=== PATIENT | male | born 1985 | race Caucasian/White ===

== ENCOUNTER 2024-07-07 11:26 | Outpatient (CLI) | payer OTHER ==
[~2024-07-07 11:26] MED LIST: ACYC-1 PO; BUPR150T8 PO; BUSP15TA7 PO; FLUO20CA39 PO; FLUT16SP26 BOTHNARES; LORA10TA7 PO; MONT-40 PO; OMEP20CA16 PO; VITAMIN D3
== END 2024-07-07 23:59 | disposition home or self-care (01) ==
LOC: RAD 11:26
PROVIDERS: ATTEND Surgery
DX: K44.9 Diaphragmatic hernia without obstruction or gangrene (principal); K21.9 Gastro-esophageal reflux disease without esophagitis
CPT/HCPCS: 74220

== ENCOUNTER 2024-07-12 05:25 | Day surgery (SDC) | payer OTHER ==
[2024-07-06 15:40] LABS: BASOPHILS # (AUTO) 0.1 X10'3 (0-0.2); BASOPHILS % (AUTO) 1.5 % (0-1); EOSINOPHILS # (AUTO) 0.4 X10'3 (0-0.9); EOSINOPHILS % (AUTO) 4.6 % (0-6); LYMPHOCYTES # (AUTO) 2.4 X10'3 (1.1-4.8); LYMPHOCYTES % (AUTO) 27.3 % (21-51); MEAN CORPUSCULAR HEMOGLOBIN 29.5 PG (27.0-31.0); MEAN CORPUSCULAR HGB CONC 34.5 g/dL (33.0-36.5); MEAN CORPUSCULAR VOLUME 85.4 FL (78-98); MEAN PLATELET VOLUME 7.6 FL (7.4-10.4); MONOCYTES # (AUTO) 0.8 X10'3 (0-0.9); MONOCYTES % (AUTO) 8.5 % (2-12); NEUTROPHILS # (AUTO) 5.2 X10'3 (1.8-7.7); NEUTROPHILS % (AUTO) 58.1 % (42-75); PRE OP HEMATOCRIT 42.3 % (42.0-52.0); PRE OP HEMOGLOBIN 14.6 g/dL (14.0-17.9); PRE OP PLATELET COUNT 461 X10'3 (140-440); PRE OP WHITE BLOOD COUNT 8.9 10'3 (4.8-10.8); RED BLOOD COUNT 4.96 X10'6 (4.70-6.10); RED CELL DISTRIBUTION WIDTH 13.5 % (11.5-14.5)
[2024-07-06 15:50] LABS: ALBUMIN 3.7 G/DL (3.4-5.0); ALKALINE PHOSPHATASE 63 IU/L (46-116); BLOOD UREA NITROGEN 17 MG/DL (7-18); BUN/CREATININE RATIO 13.3 (10.0-20.0); CALCIUM 9.2 MG/DL (8.5-10.1); CHLORIDE 104 MMOL/L (99-107); CREATININE 1.28 MG/DL (0.60-1.10); PRE OP ALT 67 U/L (30-65); PRE OP ANION GAP 7 (8-16); PRE OP AST 34 U/L (10-37); PRE OP BILIRUB, TOTAL 0.2 MG/DL (0.0-1.0); PRE OP GLUCOSE 74 MG/DL (70-104); PRE OP SODIUM 139 MMOL/L (135-145); TOTAL CARBON DIOXIDE 28.5 MMOL/L (24-32); TOTAL PROTEIN 7.5 G/DL (6.4-8.2); eGFR 63 ML/MIN
[~2024-07-12] VITALS: Ht 188 cm; Wt 107.4 kg
[2024-07-12] VITALS (12 sets, daily range): BP systolic 147–171; BP diastolic 84–111; PULSE 82–87; RESP 15–18; TEMP 97.6; O2SAT 0–99
[2024-07-12] MEDS: famotidine 20mg tablet PO ONE (06:11)
[2024-07-12] MEDS: ringers solution, lacted 1,000 ML IV SCH (06:12)
[2024-07-12] MEDS: ceFAZolin 2gm in dextrose, iso 50 ML IV ONE (06:13)
[2024-07-12] MEDS ORDERED: BUPIVAcaine 2.5mg/ml inj 50ml vial (contains preservative) ONE (06:37)
[2024-07-12] MEDS ORDERED: LIDOcaine 1% 30ml preserv. free vial ONE (06:37)
[2024-07-12] MEDS ORDERED: fentaNYL/PF 50MCG/1 ML 2ML syringe IV PRN ×2 (07:10)
[2024-07-12] MEDS ORDERED: ondansetron/PF 4mg/2ml inj IV PRN (07:10)
[2024-07-12] MEDS ORDERED: morphine 2 MG/ML inj. syringe IV PRN (07:10)
[2024-07-12] MEDS ORDERED: ringers solution, lacted 1,000 ML IV SCH (07:10)
[2024-07-12] MEDS ORDERED: hydrALAZINE 20mg/ml inj. IV PRN (07:10)
[2024-07-12] MEDS ORDERED: midazolam 1 mg/ML 2ml injection ONE (07:13)
[2024-07-12] MEDS ORDERED: fentaNYL /PF 50mcg/ml 5ml ampule ONE (07:14)
[2024-07-12] MEDS ORDERED: dexamethasone sod phosphate 4mg/ml inj. ONE (07:16)
[2024-07-12] MEDS ORDERED: propofol inj 20 ML IV ONE (07:17)
[2024-07-12] MEDS ORDERED: rocuronium 10mg/ml inj IV ONE ×2 (07:17→09:12)
[2024-07-12] MEDS ORDERED: ondansetron/PF 4mg/2ml inj ONE (07:17)
[2024-07-12] MEDS ORDERED: LIDOcaine 2% (20mg/ml) 5ml vial ONE (07:17)
[2024-07-12] MEDS ORDERED: sevoflurane 250ml liquid IH ONE (07:21)
[2024-07-12] MEDS ORDERED: acetaminophen 1,000mg/100ml IV 100 ML IV ONE (07:31)
[2024-07-12] MEDS ORDERED: labetalol 20mg/4ml (5mg/ml) syringe IV ONE (09:11)
[2024-07-12] MEDS ORDERED: fentaNYL/PF 50MCG/1 ML 2ML syringe ONE (09:12)
[2024-07-12] MEDS ORDERED: sugammadex 200mg/2ml injection IV ONE (09:14)
[2024-07-12] MEDS ORDERED: naloxone 0.4 mg/ml inj IV PRN (10:15)
[2024-07-12] MEDS ORDERED: oxyCODONE/APAP 5-325mg tablet PO PRN (10:15)
[2024-07-12] MEDS: labetalol 20mg/4ml (5mg/ml) syringe IV PRN (10:33)
[2024-07-12] MEDS: oxyCODONE/APAP 5-325mg tablet PO ONE (10:59)
[2024-07-12] MEDS: morphine 4 MG/ML inj SYRINge IV PRN (11:03)
== END 2024-07-12 11:28 | disposition home or self-care (01) ==
LOC: PAS 05:25
PROVIDERS: ATTEND Surgery
DX: K44.9 Diaphragmatic hernia without obstruction or gangrene (principal); K21.9 Gastro-esophageal reflux disease without esophagitis; F32.A Depression, unspecified; G40.909 Epilepsy, unspecified, not intractable, without status epilepticus; G47.30 Sleep apnea, unspecified; Z98.890 Other specified postprocedural states; F41.9 Anxiety disorder, unspecified; Z79.899 Other long term (current) drug therapy; Z87.01 Personal history of pneumonia (recurrent); Z91.010 Allergy to peanuts
CPT/HCPCS: 36415; 43282; 71045; 80053; 82948; 85025; 93005; C1781; J0131; J0690; J1100; J2003; J2250; J2270; J2405; J2704; J3010; J3490; J7030; J7120; S2900; Z7506; Z7508; Z7512; A4618